=== PATIENT | male | born 1975 | race African-American/Black ===

== ENCOUNTER 2018-07-03 17:38 | Emergency (ER) | payer OTHER ==
[~2018-07-03] VITALS: Ht 170.2 cm; Wt 74.8 kg
[2018-07-03 18:05] VITALS: BP 153/101
[2018-07-03] MEDS ORDERED: ORPH100T PO (18:14)
[2018-07-03] MEDS ORDERED: HYDR-3164 PO (18:14)
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
--- NOTE | 2018-07-03 19:16 | RAD ---
Three-view cervical spine and three-view thoracic spine dated 07/03/2018. No comparison available. Clinical data indication: Pain. FINDINGS: 3 views cervical spine show straightening of the normal cervical lordosis, otherwise sagittal alignment is anatomic. Vertebral body heights are maintained. No prevertebral soft tissue swelling. Posterior elements are intact. There is moderate disc space narrowing at C6-C7 with mild endplate hypertrophic changes throughout. Mild hypertrophic change of the facet joints. C1-C2 articulation unremarkable. 3 views of thoracic spine show normal sagittal alignment. Vertebral body heights are maintained. The upper thoracic levels are not well visualized due to overlap. Minimal endplate hypertrophic changes throughout. No paraspinous soft tissue abnormality. IMPRESSION: 1. No acute radiographic abnormality. 2. Mild multilevel spondylosis. Electronically signed by: Benedicto Hooker MD (07/03/2018 7:13 PM) [facility]
== END 2018-07-03 19:39 | disposition home or self-care (01) ==
LOC: ER 17:38
DX: M54.2 Cervicalgia (principal); M54.6 Pain in thoracic spine; G89.11 Acute pain due to trauma; V49.49XA Driver injured in collision with other motor vehicles in traffic accident, initial encounter; Y93.89 Activity, other specified; Y92.488 Other paved roadways as the place of occurrence of the external cause; Y99.8 Other external cause status
CPT/HCPCS: 72040; 72072; 99284

== ENCOUNTER 2019-09-05 17:31 | Emergency (ER) | payer OTHER ==
[~2019-09-05] VITALS: Ht 170.2 cm; Wt 78.9 kg
[~2019-09-05 17:31] MED LIST: HYDR-3164 PO; ORPH100T PO
[2019-09-05 17:42] VITALS: BP 158/109
--- NOTE | 2019-09-05 18:20 | PHYS DOC ---
Past Medical History Past Medical History: Hypertension Past Surgical History: No Surgical History Alcohol Use: None Drug Use: None Adult General Chief Complaint Chief Complaint: MECHANICAL FALL HPI HPI Patient is a 44 year old male with history of hypertension who presents to the ED today complaining of 7 out of 10 right lateral neck pain, right low back pain and right knee pain status post falling at a [employer] restaurant this afternoon, patient reports he tripped over has small raised area/stepped and fell landing on his right side. Denies any loss of consciousness. Denies any pain radiating to bilateral lower extremities. Denies any loss of bowel/bladder function. Reports most of the pain is worse on weight-bearing as well as certain movements. Denies anything specifically relieving the pain. Review of Systems Review of Systems Constitutional: Denies fever or chills [] Eyes: Denies change in visual acuity, redness, or eye pain [] HENT: Denies nasal congestion or sore throat [] Respiratory: Denies cough or shortness of breath [] Cardiovascular: No additional information not addressed in HPI [] GI: Denies abdominal pain, nausea, vomiting, bloody stools or diarrhea [] : Denies dysuria or hematuria [] Musculoskeletal: Denies back pain or joint pain [] Integument: Denies rash or skin lesions [] Neurologic: Denies headache, focal weakness or sensory changes [] Endocrine: Denies polyuria or polydipsia [] All other systems were reviewed and found to be within normal limits, except as documented in this note. Allergies Allergies Allergies Coded Allergies Type Severity Reaction Last Updated Verified No Known Drug Allergies 07/03/18 No Physical Exam Physical Exam Constitutional: Well developed, well nourished, no acute distress, non-toxic appearance. [] HENT: Normocephalic, atraumatic, bilateral external ears normal, oropharynx moist, no oral exudates, nose normal. [] Eyes: PERRLA, EOMI, conjunctiva normal, no discharge. [] Neck: Normal range of motion, diffuse paraspinal muscle tenderness the right cervical spine, no midline cervical spine tenderness, supple, no stridor. [] Cardiovascular:Heart rate regular rhythm, no murmur [] Lungs & Thorax: Bilateral breath sounds clear to auscultation [] Abdomen: Bowel sounds normal, soft, no tenderness, no masses, no pulsatile masses. [] Skin: Warm, dry, no erythema, no rash. [] Back: No tenderness, no CVA tenderness. [] Extremities: No tenderness, no cyanosis, no clubbing, ROM intact, no edema. [] Neurologic: Alert and oriented X 3, normal motor function, normal sensory function, no focal deficits noted. [] Psychologic: Affect normal, judgement normal, mood normal. [] Current Patient Data Vital Signs Vital Signs Date Time Temp Pulse Resp B/P (MAP) Pulse Ox O2 Delivery O2 Flow Rate FiO2 09/05/19 17:42 97.6 75 20 158/109 (125) 99 Room Air 97.6 EKG EKG [] Radiology/Procedures Radiology/Procedures [] Course & Med Decision Making Course & Med Decision Making Pertinent Labs and Imaging studies reviewed. (See chart for details) This is a 44-year-old male patient presenting to the ED today with right lateral neck pain, right low back pain and right knee pain after falling in a restaurant. Cervical spine x-rays, lumbar spine x-rays and right knee x-rays interpreted by Dr. Frey-negative for any acute findings. Patient was discharged to home. OTC pain relievers recommended. Follow-up with PCP in 1-2 weeks for blood pressure management, he has history of hypertension and is not on medicine Dragon Disclaimer Dragon Disclaimer This electronic medical record was generated, in whole or in part, using a voice recognition dictation system. Departure Departure Impression: Primary Impression: Fall from standing Additional Impressions: Acute cervical sprain Contusion of right knee Low back pain Disposition: HOME, SELF-CARE Condition: STABLE Referrals: UNKNOWN PCP NAME (PCP) follow up with a primary care doctor from the list provided next week Patient Instructions: Back Pain, Adult, Cervical Sprain, [id number] Additional Instructions: You were evaluated in the emergency room after falling, your x-rays of the neck, low back and right knee are negative for any acute findings. You can take [id number] pain relievers as needed. Try to ice and elevate the affected area. Please establish care with a primary care doctor from the list provided and follow-up Problem Qualifiers Primary Impression: Fall from standing Encounter type: initial encounter Qualified Codes: W19.XXXA - Unspecified fall, initial encounter Additional Impressions: Acute cervical sprain Encounter type: initial encounter Qualified Codes: S13.9XXA - Sprain of joints and ligaments of unspecified parts of neck, initial encounter Contusion of right knee Encounter type: initial encounter Qualified Codes: S80.01XA - Contusion of right knee, initial encounter Low back pain Chronicity: acute Back pain laterality: bilateral Sciatica presence: w ithout sciatica Qualified Codes: M54.5 - Low back pain ROCIO DAILY APRN Sep 05, 2019 18:20
--- NOTE | 2019-09-05 20:14 | RAD ---
Exam: Cervical spine 2 views INDICATION: Fall, pain TECHNIQUE: Frontal, lateral and odontoid views of the cervical spine Comparisons: None FINDINGS: There is straightening of cervical spine which may be positional. Vertebral body heights are well-maintained. There is multilevel degenerative change in the cervical spine with degenerative disc disease greatest at C6-C7. IMPRESSION: Spondylotic change in the cervical spine as described above. Electronically signed by: Steve Laughlin MD (09/05/2019 8:12 PM) [facility]
--- NOTE | 2019-09-05 22:32 | RAD ---
Study: LUMBAR SPINE 2-3V Indication: Fall. Pain. Comparison: None. Findings: 5 nonrib-bearing lumbar vertebral elements. Straightening of lumbar lordosis. Discogenic arthrosis at L5-S1 with moderate to severe disc space narrowing. There is likely facet degeneration at this level as well. No significant degenerative changes seen elsewhere. No suspicious vertebral body height loss. The adequately assessed posterior elements are intact. Partially visualized pelvic osseous structures are unremarkable. Impression: 1. No acute fracture or traumatic malalignment. 2. Age accelerated degenerative changes at L5-S1 with moderate to severe disc space narrowing. Electronically signed by: NIKOS FAJARDO MD (09/05/2019 10:29 PM) [facility]
--- NOTE | 2019-09-05 22:34 | RAD ---
Study: KNEE RIGHT 4V Indication: Fall. Pain. Comparison: None. Findings: No acute fracture or traumatic malalignment. Potential very small knee joint effusion seen within the suprapatellar recess. Tiny osteophyte at the proximal patellar pole. Lucency with geographic margins and a probable thin sclerotic rim located at the proximal tibial diaphysis measuring 9 mm. Impression: 1. No acute fracture or traumatic malalignment. 2. Geographically marginated lucency at the proximal tibial diaphysis with the suggestion of a thin rim of sclerosis. Radiographically this does not appear aggressive but consider follow-up radiographs in one month to document stability given patient age. Electronically signed by: NIKOS FAJARDO MD (09/05/2019 10:31 PM) [facility]
== END 2019-09-05 20:02 | disposition home or self-care (01) ==
LOC: ER 17:31
DX: S13.9XXA Sprain of joints and ligaments of unspecified parts of neck, initial encounter (principal); S80.01XA Contusion of right knee, initial encounter; M54.5 Low back pain; I10 Essential (primary) hypertension; W18.09XA Striking against other object with subsequent fall, initial encounter; Y93.89 Activity, other specified; Y92.511 Restaurant or cafe as the place of occurrence of the external cause; Y99.8 Other external cause status
CPT/HCPCS: 72040; 72100; 73564; 99284

== ENCOUNTER 2020-02-14 00:28 | Emergency (ER) | payer SELFPAY ==
[~2020-02-14] VITALS: Ht 168.9 cm; Wt 78.2 kg
--- NOTE | 2020-02-14 01:19 | PHYS DOC ---
Past Medical History Past Medical History: Hypertension Past Surgical History: No Surgical History Smoking Status: Current Every Day Smoker Alcohol Use: None Drug Use: None General Adult EDM: Chief Complaint: COUGH HPI: HPI: Patient is a 44 year old male who presents with complaint of cough and just not feeling well for the last 5 days. Patient states that cough is been fairly dry. He states that when he stands up he feels little bit lightheaded. He denies any headache however and has had no nausea or vomiting. Patient also denies any fever. He does indicate that he has had some periods where he feels like he is having hot spells though. He denies any chest pain or shortness of breath. He does indicate that he is got some sinus congestion and rhinorrhea. [] Review of Systems: Review of Systems: Constitutional: Denies fever or chills. [] HENT: Positive nasal congestion. [] Respiratory: Complains of cough without shortness of breath. [] Cardiovascular: Denies chest pain or edema. [] Integument: Denies rash. [] Neurologic: Denies headache, focal weakness or sensory changes. [] Heart Score: Risk Factors: Risk Factors: DM, Current or recent (<one month) smoker, HTN, HLP, family history of CAD, obesity. Risk Scores: Score 0 - 3: 2.5% MACE over next 6 weeks - Discharge Home Score 4 - 6: 20.3% MACE over next 6 weeks - Admit for Clinical Observation Score 7 - 10: 72.7% MACE over next 6 weeks - Early Invasive Strategies Allergies: Allergies: Allergies Coded Allergies Type Severity Reaction Last Updated Verified No Known Drug Allergies 07/03/18 No Physical Exam: PE: Constitutional: Well developed, well nourished, no acute distress, non-toxic appearance. [] HENT: Normocephalic, atraumatic, bilateral external ears normal, oropharynx moist, no oral exudates, nose normal. [] Cardiovascular: Mildly tachycardic rate with regular rhythm [] Lungs & Thorax: Bilateral breath sounds clear to auscultation [] Abdomen: Bowel sounds normal, soft, no tenderness. [] Skin: Warm, dry, no erythema, no rash. [] Extremities: No tenderness, no cyanosis, no clubbing, ROM intact, no edema. [] Neurologic: Alert and oriented X 3, no focal deficits noted. [] EKG: EKG: [] Radiology/Procedures: Radiology/Procedures: [] Course & Med Decision Making: Course & Med Decision Making Pertinent Labs and Imaging studies reviewed. (See chart for details) A chest x-ray was ordered on this patient but patient refused. Dragon Disclaimer: Dragon Disclaimer: This electronic medical record was generated, in whole or in part, using a voice recognition dictation system. Departure Departure Impression: Primary Impression: Upper respiratory infection Qualified Codes: J06.9 - Acute upper respiratory infection, unspecified Disposition: HOME, SELF-CARE Condition: STABLE Referrals: UNKNOWN PCP NAME (PCP) Patient Instructions: Upper Respiratory Infection, Adult Justicifation of Admission Dx: Justifications for Admission: Justification of Admission Dx: Comment: (Not applicable) MAREN THURSTON Jr. DO Feb 14, 2020 01:19
[2020-02-14 01:37] VITALS: BP 124/87
== END 2020-02-14 01:55 | disposition home or self-care (01) ==
LOC: ER 00:28
DX: J06.9 Acute upper respiratory infection, unspecified (principal); R05 Cough; R42 Dizziness and giddiness; R09.81 Nasal congestion; I10 Essential (primary) hypertension; F17.200 Nicotine dependence, unspecified, uncomplicated
CPT/HCPCS: 99281